=== PATIENT | female | born 1955 | race Caucasian/White ===

== ENCOUNTER 2020-09-22 09:51 | Outpatient (REF) | payer MEDICARE, OTHER, SELFPAY ==
--- NOTE | 2020-09-22 | MM_ITS ---
EXAMINATION: MM SCREENING DIGITAL BREAST TOMOSYNTHESIS, BILATERAL CLINICAL INFORMATION: Right lumpectomy for breast cancer 1988. Due for yearly. COMPARISON: Mammography: 09/03/2019, 08/30/2018, 08/23/2017 TECHNIQUE: Digital breast tomosynthesis is performed in both the craniocaudal and mediolateral oblique views along with computer-aided detection (CAD). Synthesized 2D images are generated from the tomosynthesis. FINDINGS: The breasts are heterogeneously dense, which may obscure small masses (ACR BI-RADS breast composition Category c). Right breast post therapy changes are stable. There is mild reduced breast size and old scarring and some dystrophic and punctate calcifications upper outer quadrant. Neither breast shows interval significant mass or architectural abnormality or abnormal calcifications. No significant changes from prior exams. MM/MM tomosynthesis screening BI IMPRESSION: No significant changes from prior study. Post therapy changes right breast. ASSESSMENT: BI-RADS 2: Benign RECOMMENDATION: Routine annual mammography screening. This patient's information was entered into a reminder system with a target due date for their next mammogram.
== END 2020-09-22 09:52 | disposition home or self-care (01) ==
LOC: HO.MAMMO 09:51
PROVIDERS: PCP Internal Medicine; Visit Provider Internal Medicine
DX: Z12.31 Encounter for screening mammogram for malignant neoplasm of breast (principal)
CPT/HCPCS: 77063; 77067

== ENCOUNTER 2021-08-20 07:00 | Outpatient (REF) | payer MEDICARE, OTHER, SELFPAY ==
[2021-08-20 11:25] LABS: MANUAL DIFF FLAG NO
[2021-08-20 11:38] LABS: Basophils Absolute Auto 0.1 X10*3/uL (0.0-0.2); Basophils Percent Auto 0.9 % (0-2); Eosinophils Absolute Auto 0.1 X10*3/uL (0.0-0.4); Eosinophils Percent Auto 0.9 % (0-4); Hematocrit 42.7 % (37-47); Hemoglobin 13.6 g/dl (12.0-16.0); Imm Gran Abs Auto 0.02 X10*3/uL (0.00-0.03); Imm Gran Pct Auto 0.4 % (0.0-0.4); Lymphocytes Absolute Auto 1.3 X10*3/uL (1.2-4.9); Lymphocytes Percent Auto 23.3 % (20-40); Mean Corpuscular HGB Conc 31.9 g/dl (31.0-35.0); Mean Corpuscular Hemoglobin 29.2 pg (27.0-33.0); Mean Corpuscular Volume 91.6 fL (80-98); Mean Platelet Volume 10.9 fL (9.4-12.3); Monocytes Absolute Auto 0.3 X10*3/uL (0.1-1.2); Monocytes Percent Auto 5.1 % (2-11); Neutrophils Absolute Auto 3.8 X10*3/uL (2.0-8.3); Neutrophils Percent Auto 69.4 % (45-73); Platelet Count 297 X10*3/uL (160-400); Red Blood Count 4.66 X10*6/uL (4.20-5.50); Red Cell Distribution Width 14.1 % (11.0-16.0); White Blood Count 5.5 X10*3/uL (4.8-10.8)
[2021-08-20 12:00] LABS: Alanine Aminotransferase 28 U/L (0-31); Alkaline Phosphatase 80 U/L (39-117); Anion Gap 12 (12-20); Aspartate Amino Transferase 28 U/L (5-31); Bilirubin Total 0.5 mg/dL (0.0-1.0); Blood Urea Nitrogen 20 mg/dL (9-16); Calcium 9.3 mg/dL (8.4-10.2); Carbon Dioxide 26 mmol/L (22-29); Chloride 107 mmol/L (96-108); Cholesterol 156 mg/dL; Estimated Glomerular Filt Rate > 60; Glucose Random 100 mg/dL (60-115); HDL Cholesterol 80 mg/dL; LDL Cholesterol Calculated 69 mg/dl; Sodium 141 mmol/L (135-145); Total Protein 7.3 g/dL (6.5-8.0); Triglycerides 38 mg/dL
== END 2021-08-20 07:01 | disposition home or self-care (01) ==
LOC: HO.HMGCLDS 07:00
PROVIDERS: PCP Internal Medicine; Visit Provider Internal Medicine
DX: I10 Essential (primary) hypertension (principal); Z80.0 Family history of malignant neoplasm of digestive organs; Z85.3 Personal history of malignant neoplasm of breast
CPT/HCPCS: 36415; 80053; 80061; 85025

== ENCOUNTER 2021-08-24 10:31 | Outpatient (REF) | payer MEDICARE, OTHER, SELFPAY ==
--- NOTE | ~2021-08-24 | MM_ITS ---
EXAMINATION: MM DIAGNOSTIC DIGITAL BREAST TOMOSYNTHESIS, BILATERAL US DIAGNOSTIC ULTRASOUND BREAST, RIGHT CLINICAL INFORMATION: Palpable fullness noted by patient posterior upper outer right breast near remote right lumpectomy scar. Prior surgery performed at [place]. History right breast cancer with axillary dissection and radiation. Due for yearly exam. COMPARISON: Mammography: 09/22/2020, 09/03/2019, 08/30/2018, 08/23/2017 TECHNIQUE: Digital breast tomosynthesis is performed in both the craniocaudal and mediolateral oblique views along with computer-aided detection (CAD). Synthesized 2D images are generated from the tomosynthesis. Additional right exaggerated CC and spot right MLO views are obtained. Ultrasound right breast is targeted to the area of palpable concern posterior upper outer breast. Patient is able to point to the area of concern at time of imaging. Grayscale imaging and color Doppler are performed without and with harmonics. FINDINGS: The breasts are heterogeneously dense, which may obscure small masses (ACR BI-RADS breast composition Category c). There has been prior remote right lumpectomy with reduced breast size and mild scarring. There is subtle increased parenchymal attenuation at the site of palpable concern, best appreciated on the MLO and spot MLO views. There are some old benign calcifications again seen mid upper outer right breast. The left breast is unremarkable. There is no mass or architectural abnormality or abnormal calcifications. Skin contours are smooth. Ultrasound palpable concern upper outer right breast demonstrates an irregular hypoechoic mass measuring 1.1 x 0.8 x 1.1 cm. There is associated mild internal color flow. There is no skin thickening. No visible adenopathy right axilla. Results are discussed with the patient at time of visit. Ultrasound-guided core biopsy of the right breast mass is recommended. MM/MM tomosynthesis diagnostic BI IMPRESSION: 1. Right: Irregular hypoechoic mass at site of palpable concern posterior upper outer breast near prior remote lumpectomy scar measuring 1.1 cm. 2. Left: No mammographic evidence of malignancy. ASSESSMENT: BI-RADS 4: Suspicious RECOMMENDATION: Ultrasound-guided core biopsy right breast mass. This patient's information was entered into a reminder system with a target due date for their next mammogram.
== END 2021-08-24 10:32 | disposition home or self-care (01) ==
LOC: HO.MAMMO 10:31
PROVIDERS: Visit Provider Internal Medicine
DX: N64.89 Other specified disorders of breast (principal); Z85.3 Personal history of malignant neoplasm of breast
CPT/HCPCS: 76642; 77062; 77066

== ENCOUNTER → 2021-08-30 08:16 | Outpatient (BNVA) | payer MEDICARE, OTHER, SELFPAY | PROVIDERS: PCP Internal Medicine; Visit Provider Surgery | DX: N63.10 Unspecified lump in the right breast, unspecified quadrant (principal) | CPT/HCPCS: 99202 ==

== ENCOUNTER 2021-08-31 07:41 | Outpatient (REF) | payer MEDICARE, OTHER, SELFPAY ==
--- NOTE | ~2021-08-31 | MM_ITS ---
EXAMINATION: ULTRASOUND GUIDED CORE BIOPSY BREAST, RIGHT POST PROCEDURE DIGITAL BREAST TOMOSYNTHESIS, RIGHT CLINICAL INFORMATION: Irregular hypoechoic mass 1.1 cm posterior upper outer quadrant near prior remote lumpectomy scar (prior surgery performed at [facility] in [place]).. COMPARISON: Mammography and right breast ultrasound 08/24/2021. FINDINGS: Proper informed consent is obtained from the patient after discussion of the procedure, potential risks and complications, and alternatives. Patient was given an opportunity for questions. The patient appeared to understand. The patient consented to the procedure and signed the consent form. GUIDANCE: Ultrasound-guided; aseptic technique. LESION: Irregular hypoechoic mass near prior lumpectomy scar posterior upper outer quadrant measuring 1.1 cm. APPROACH: Oblique lateral medial. ANESTHESIA: 10 mL carbonated 1% lidocaine. DERMATOTOMY: Single skin rio dermatotomy performed. NEEDLE: 14-gauge Achieve core biopsy device with 13.5-gauge co-axial guide needle. CORES: 6. CLIP: HydroMARK; shape: butterfly. POST PROCEDURE UNILATERAL DIGITAL BREAST TOMOSYNTHESIS, RIGHT: The post biopsy mammogram is performed in separate room using digital breast tomosynthesis. Synthesized 2-D images are generated from the tomography. The, ML, exaggerated CC, and MLO views are obtained. The breasts are heterogeneously dense, which may obscure small masses (breast composition category: c). The clip marker is in position. No gross hematoma. The patient tolerated the procedure well. No immediate complications. Home instructions reviewed with the patient. Final pathology results are pending. MM/MM tomosynthesis diagnostic RT IMPRESSION: 1. Status post ultrasound-guided core biopsy right breast. 2. Clip placed: HydroMARK; shape: butterfly. 3. Pathology pending. An addendum report will be issued.
[2021-08-31] MEDS: Lidocaine HCl 1 % 20 ML VIAL 9 ML SUBCUT (11:51)
[2021-08-31] MEDS: Sodium Bicarbonate 8.4% 50 MEQ/50 ML VIAL SUBCUT (11:53)
== END 2021-08-31 07:42 | disposition home or self-care (01) ==
LOC: HO.MAMMO 07:41
PROVIDERS: Visit Provider Surgery
DX: C50.411 Malignant neoplasm of upper-outer quadrant of right female breast (principal); Z17.0 Estrogen receptor positive status [ER+]
CPT/HCPCS: 19083; 77061; 77065; 88305; 88342; 88360

== ENCOUNTER → 2021-09-02 14:20 | Outpatient (BNVA) | payer MEDICARE, OTHER, SELFPAY | PROVIDERS: PCP Internal Medicine; Visit Provider Surgery | DX: C50.911 Malignant neoplasm of unspecified site of right female breast (principal) | CPT/HCPCS: 99212 ==